=== PATIENT | female | born 1975 | race Two or more races ===

== ENCOUNTER 2020-07-05 21:12 | Emergency (ER) | payer SELFPAY ==
[~2020-07-05] VITALS: Ht 167.6 cm; Wt 94.5 kg
[2020-07-05] MEDS ORDERED: METOPROLOL (21:43)
[2020-07-05] MEDS ORDERED: KETOROLAC 30 MG/ML 1ML VIAL IV ONE (22:00)
[2020-07-05] MEDS ORDERED: NS 1,000 ML IV ONE (22:00)
[2020-07-05 22:11] LABS: VENOUS BASE EXCESS -1.3 (-2.0-2.0); VENOUS HCO3 22.4 MEQ/L (23.0-27.0); VENOUS O2 SATURATION 97.5 % (60.0-80.0); VENOUS PARTIAL PRESSURE CO2 34.2 mmHg (38.0-50.0); VENOUS PARTIAL PRESSURE O2 126.2 mmHg (30.0-50.0); VENOUS PH 7.435 UNITS (7.330-7.430); VENOUS STANDARD HCO3 23.4 MEQ/L; VENOUS TOTAL CO2 23.5 MEQ/L (24.0-28.0)
[2020-07-05 22:13] LABS: BASO % 0.2 % (0.0-1.0); EOS # 0.1 10^3/uL (0.0-0.5); EOS % 0.8 % (0.0-3.0); HEMATOCRIT 33.5 % (36.0-47.0); HEMOGLOBIN 10.5 g/dl (12.0-15.5); LYMPH # 1.6 10^3/uL (1.5-5.0); LYMPH % 16.7 % (24.0-44.0); MEAN CORPUSCULAR HEMOGLOBIN 26.4 pg (27.0-33.0); MEAN CORPUSCULAR HGB CONC 31.3 g/dl (32.0-36.5); MEAN CORPUSCULAR VOLUME 84.2 fl (80.0-96.0); MONO # 0.8 10^3/uL (0.0-0.8); MONO % 8.6 % (0.0-5.0); NEUTROPHILS % 73.4 % (36.0-66.0); PLATELET COUNT, AUTOMATED 318 10^3/uL (150-450); RED BLOOD COUNT 3.98 10^6/uL (4.00-5.40); WHITE BLOOD COUNT 9.6 10^3/uL (4.0-10.0)
[2020-07-05 22:41] LABS: ALBUMIN 3.3 GM/DL (3.2-5.2); ALT/SGPT 14 U/L (12-78); BILIRUBIN,DIRECT < 0.1 MG/DL (0.0-0.2); BILIRUBIN,TOTAL 0.2 MG/DL (0.2-1.0); BLOOD UREA NITROGEN 11 MG/DL (7-18); CALCIUM LEVEL 8.3 MG/DL (8.5-10.1); CARBON DIOXIDE LEVEL 24 MEQ/L (21-32); CHLORIDE LEVEL 113 MEQ/L (98-107); CK-MB VALUE MASS < 1.0 NG/ML (<3.6); CPK CREATINE PHOSPHOKINASE 77 U/L (26-192); CREATININE FOR GFR 0.65 MG/DL (0.55-1.30); GLOMERULAR FILTRATION RATE > 60.0 (>58); GLUCOSE, FASTING 74 MG/DL (70-100); LIPASE 180 U/L (73-393); POTASSIUM SERUM 3.8 MEQ/L (3.5-5.1); SODIUM LEVEL 143 MEQ/L (136-145); TOTAL PROTEIN 6.6 GM/DL (6.4-8.2); TROPONIN I 0.07 NG/ML (< 0.10)
[2020-07-05 23:03] LABS: HCG, SERUM QUALITATIVE NEGATIVE (NEGATIVE)
--- NOTE | 2020-07-05 23:31 | REPVR ---
PROCEDURE INFORMATION: Exam: XR Chest, 1 View Exam date and time: 07/05/2020 11:19 PM Age: 45 years old Clinical indication: Chest pain; Type not specified TECHNIQUE: Imaging protocol: XR of the chest Views: 1 view. COMPARISON: No relevant prior studies available. FINDINGS: Lungs: Unremarkable. No consolidation. Pleural space: Unremarkable. No pleural effusion. No pneumothorax. Heart/Mediastinum: Unremarkable. No cardiomegaly. Bones/joints: Unremarkable. Gastrointestinal tract: Nonspecific distended bowel in the upper abdomen. IMPRESSION: No acute infiltrates. Electronically signed by: Gold Roberts On 07/05/2020 23:31:19 PM
[2020-07-06 00:30] VITALS: BP 180/87
--- NOTE | 2020-07-06 15:28 | ECGEPIP ---
[facility] - ED Test Date: 2020-07-05 Pat Name: [facility] Department: Room: - Gender: Female Cannon Crewmember: jose miguel : 1975 Requested By: SHANTANU Hays Order Number: [id number] Reading MD: Bianka Kate Measurements Intervals Lissie Rate: 88 P: 28 KS: 151 QRS: 9 QRSD: 105 T: 65 QT: 380 QTc: 460 Interpretive Statements SINUS RHYTHM POSSIBLE INFERIOR MYOCARDIAL INFARCTION, PROBABLY OLD NSTTW abnormalities NO PRIOR Electronically Signed on 07-06-2020 15:27:57 EDT by Bianka Kate
== END 2020-07-06 00:47 | disposition home or self-care (01) ==
LOC: M ED 21:12
DX: R06.02 Shortness of breath (principal); I10 Essential (primary) hypertension; R94.31 Abnormal electrocardiogram [ECG] [EKG]; F41.1 Generalized anxiety disorder; F17.200 Nicotine dependence, unspecified, uncomplicated; Z20.828 Contact with and (suspected) exposure to other viral communicable diseases
CPT/HCPCS: 71045; 80048; 80076; 82550; 82553; 82803; 83690; 84484; 84703; 85025; 93005; 93041; 94760; 96374; 99285; J1885; U0002